=== PATIENT | male | born 1980 | race Caucasian/White ===

== ENCOUNTER 2017-06-07 07:00 | Day surgery (SDC) | payer BC ==
[~2017-06-07 07:00] MED LIST: Lactated Ringers 1,000 ML IV SCH
[2017-06-07] MEDS ORDERED: Propofol 200 MG/20 ML SDV ONE ×3 (07:14→09:13)
[2017-06-07] MEDS ORDERED: fentaNYL 100 MCG/2 ML SDV ONE (07:14)
[2017-06-07] MEDS ORDERED: Midazolam 1 MG/ML 2 ML SDV ONE (07:14)
--- NOTE | 2017-06-07 08:13 | PCM.PREANE ---
Preanesthetic Assessment - Anesthesia/Transfusion/Family Hx Anesthesia History: Prior Anesthesia Without Reaction Family History of Anesthesia Reaction: No Transfusion History: No Prior Transfusion(s) - Review of Systems General: No Symptoms Pulmonary: No Symptoms Cardiovascular: No Symptoms Neurological: No Symptoms Other: Reports: None - Physical Assessment NPO Status Date: 06/06/17 O2 Sat by Pulse Oximetry: 96 Respiratory Rate: 16 Vital Signs: Last Vital Signs Temp 36.2 C 06/07/17 07:12 Pulse 68 06/07/17 07:12 Resp 16 06/07/17 07:12 BP 132/67 06/07/17 07:12 Pulse Ox 96 06/07/17 07:12 Height: 1.83 m Weight: 104.326 kg ASA Class: 2 Mental Status: Alert & Oriented x3 Airway Class: Mallampati = 1 Dentition: Reports: Normal Dentition ROM/Head Extension: Full Lungs: Clear to Auscultation, Normal Respiratory Effort Cardiovascular: Regular Rate, Regular Rhythm - Allergies Allergies/Adverse Reactions: Allergies Allergy/AdvReac Type Severity Reaction Status Date / Time No Known Allergies Allergy Verified 06/02/17 08:02 - Anesthesia Plan Pre-Op Medication Ordered: None - Acknowledgements Anesthesia Type Planned: MAC Pt an Appropriate Candidate for the Planned Anesthesia: Yes Alternatives and Risks of Anesthesia Discussed w Pt/Guardian: Yes Pt/Guardian Understands and Agrees with Anesthesia Plan: Yes PreAnesthesia Questionnaire Gastrointestinal History: Reports: GERD, Hemorrhoids Musculoskeletal History: Reports: Fracture Endocrine/Metabolic History: Reports: Obesity/BMI 30+ - Past Surgical History Head Surgeries/Procedures: Reports: None GI Surgical History: Reports: Appendectomy Musculoskeletal Surgical History: Reports: ORIF Other Musculoskeletal Surgeries/Procedures:: surgical tx for fx left arm and fx left leg - SUBSTANCE USE Smoking Status *Q: Former Smoker Tobacco Use Within Last Twelve Months: No Recreational Drug Use History: No - HOME MEDS Home Medications: Home Meds Omeprazole 40 mg PO DAILY 06/02/17 [History] - CURRENT (IN HOUSE) MEDS Current Meds: Current Medications Lactated Ringer's (Ringers, Lactated) 1,000 mls @ 125 mls/hr IV ASDIRECTED KATHARINE Last Admin: 06/07/17 07:15 Dose: 125 mls/hr Discontinued Medications Fentanyl (Sublimaze) Confirm Administered Dose 100 mcg .ROUTE .STK-MED ONE Stop: 06/07/17 07:15 Lidocaine HCl (Xylocaine-Mpf 1%) Confirm Administered Dose 5 ml .ROUTE .STK-MED ONE Stop: 06/07/17 07:16 Midazolam HCl (Versed 1 Mg/Ml) Confirm Administered Dose 2 mg .ROUTE .STK-MED ONE Stop: 06/07/17 07:15 Propofol (Diprivan 20 Ml) Confirm Administered Dose 200 mg .ROUTE .STK-MED ONE Stop: 06/07/17 07:15
--- NOTE | 2017-06-07 09:32 | PCM.OPNOTE ---
- General Post-Op/Procedure Note Date of Surgery/Procedure: 06/07/17 Operative Procedure(s): egd w bx. colonoscopy w bx Findings: see dict [id number] Pre Op Diagnosis: BRBPR Post-Op Diagnosis: Same Anesthesia Technique: Moderate Sedation Primary Surgeon: Jose Ramon Watts Pathology: egd bx and random colon bx Complications: None Condition: Good
--- NOTE | 2017-06-07 09:40 | PCM.POSTAN ---
POST ANESTHESIA ASSESSMENT - MENTAL STATUS Mental Status: Alert, Oriented - RESPIRATORY Respiratory Status: Respiratory Rate WNL, Airway Patent, O2 Saturation Stable - CARDIOVASCULAR CV Status: Pulse Rate WNL, Blood Pressure Stable - GASTROINTESTINAL GI Status: No Symptoms - POST OP HYDRATION Hydration Status: Adequate & Stable
--- NOTE | 2017-06-07 09:41 | PCM48HPAN ---
Post Anesthesia Note - EVALUATION WITHIN 48HRS OF ANESTHETIC Vital Signs in Normal Range: Yes Patient Participated in Evaluation: Yes Respiratory Function Stable: Yes Airway Patent: Yes Cardiovascular Function Stable: Yes Hydration Status Stable: Yes Pain Control Satisfactory: Yes Nausea and Vomiting Control Satisfactory: Yes Mental Status Recovered: Yes
--- NOTE | 2017-06-07 10:55 | OR ---
SURGEON: Jose Ramon Watts MD DATE OF PROCEDURE: 06/07/2017 PREOPERATIVE DIAGNOSIS: Bright red blood per rectum. POSTOPERATIVE DIAGNOSES: Esophagogastroduodenoscopy diagnoses are gastric polyp and gastroesophageal reflux disease and colonoscopy diagnosis is hemorrhoid, external and internal. PROCEDURE PERFORMED: Esophagogastroduodenoscopy with biopsy and colonoscopy with random biopsy. EGD FINDINGS: 1. The patient is easily sedated with MED AIDE and Diprivan. The patient is soundly snoring. 2. The patient's oropharynx and proximal esophagus are free of disease and GE junction at 40 shows moderate salmon color change consistent with acid reflux, and also there is one large polyp and one medium polyp. The larger one is about 2 to 3 mm and right at the GE junction in the esophagus side and the smaller one is also at the esophagus side around 1 mm, and salmon color change with flame-like structure, but there is no ulcer and no blood, and rugae is normal in appearance and antrum is a little bit inflamed. Duodenum was grossly normal. Retroflex look at the fundus of the stomach and there is no hiatal hernia. There is no blood, ulceration, bile, or food observed. Biopsy done at antrum, body, and esophageal mass at the GE junction and sucked out the air while scope pulling out. PROCEDURE IN DETAIL: The patient was taken to the endoscopy room, and with the MED AIDE, Diprivan was administered. A well-lubricated EGD scope was gently inserted through the oropharynx, down the esophagus, passing through the gastroesophageal junction, into the stomach. The mucosa was examined upon the passage. Any etiology will be noted. Once in the stomach, we continued to advance to the distal antrum, passed through the pylorus into the second portion of the duodenum. Again, the mucosa was examined for any abnormality and etiology. The scope was then retrieved back to the stomach and then retroflexed to look at the fundus of the stomach. If a biopsy was indicated, we will biopsy the antrum, body, and gastroesophageal junction. The air will be sucked out while the scope is retrieved to reduce the patient's discomfort. The patient tolerated the procedure well. There were no intraoperative complications. Dr. Watts was present through the whole procedure. Prior to surgery, a time-out had been called, the patient identified, procedure identified and antibiotic administered. COLONOSCOPY FINDINGS: 1. The patient is easily sedated. 2. The patient's bowel prep is pretty good in general, but has a strong large opaque green stuff that compromised the study, and you cannot even see the couple of the mucosa, so required a lot of irrigation. The bowel itself is good. There was very little liquid stool, no semi-formed stool. Cecum indicated by ileocecal fold, one-to-one indentation, light emittance, and appendiceal orifice. Mucosa examined upon scope coming out with constant irrigation and there was no polyp, mass, growth, inflammation, stricture, diverticulosis, AV malformation, blood, ulceration observed. The patient has large external hemorrhoids, 360-degree and the patient also has moderate internal hemorrhoids. Again, no blood or ulcer observed. Random bx of the colon for BRBPR; The patient should benefit from a repeat colonoscopy 10 years from today or clinically indicated or biopsy indicated otherwise. PROCEDURE IN DETAIL: The patient was taken to the endoscopy room. A time out was called, patient identified, and procedure identified. Diprivan was then administrated. Patient went from awake to sleep, hearing doctor talking or door closing is normal. Perineum inspection and digital examination were then performed. A well- lubricated colonoscope was gently inserted through the rectum, advanced past the rectosigmoid junction, the descending colon, splenic flexure, transverse colon, hepatic flexure, ascending colon, arrived to the cecum. Cecum was identified as dictated in the finding. Then the scope was carefully withdrawn while attention was paid to the mucosal surface for any abnormality. Air will be sucked out during the scope withdrawal. At the rectum, retroflexed to examine any rectal diseases, fistula or hemorrhoids. During mucosal examination, picture taken and random biopsy performed. Patient tolerated procedure well. There were no intraoperative complications, and Dr. Watts was present throughout the whole procedure. MINDI / ZACHARIAH /[id number] CHARLIE
== END 2017-06-07 10:15 | disposition home or self-care (01) ==
LOC: MW.SDS 07:00
PROVIDERS: ATTEND Surgery
DX: K29.50 Unspecified chronic gastritis without bleeding (principal); K21.9 Gastro-esophageal reflux disease without esophagitis; K64.4 Residual hemorrhoidal skin tags; K64.8 Other hemorrhoids; E66.9 Obesity, unspecified; K31.7 Polyp of stomach and duodenum; Z79.899 Other long term (current) drug therapy; Z90.49 Acquired absence of other specified parts of digestive tract; Z87.891 Personal history of nicotine dependence; Z68.31 Body mass index [BMI] 31.0-31.9, adult
CPT/HCPCS: 43239; 45380; 88305; 88312; J2250; J3010; J7120; J2704